=== PATIENT | female | born 1950 | race Caucasian/White ===

== ENCOUNTER → 2017-07-06 | Outpatient (CLI) | payer MEDICARE, BC ==
[~2017-07-06] MED LIST: AVELOX 400MG T400 MG PO; CALCIUM 600MG+D1 TAB PO; CALCIUM1 CAP PO; CYMBALTA 30MG30 MG PO; DEXILANT30 MG PO; EVISTA 60MG60 MG/TAB PO; FISH OIL1000 MG PO; HCTZ12.5TAB PO; LIORESAL 1010 MG/TAB PO; LOFIBRA160 MG PO; PROTONIX 40MG T40 MG PO; TOPROL XL 50MG50 MG PO
== END ==
LOC: MC.RAD 09:47
DX: Z12.31 Encounter for screening mammogram for malignant neoplasm of breast (principal)

== ENCOUNTER → 2018-07-23 | Outpatient (CLI) | payer MEDICARE, BC | LOC: MC.RAD 07-19 11:00 | DX: Z12.31 Encounter for screening mammogram for malignant neoplasm of breast (principal) ==

== ENCOUNTER 2019-01-14 06:54 | Outpatient (CLI) | payer MEDICARE, BC ==
[~2019-01-14] VITALS: Ht 162.6 cm; Wt 51.8 kg
[2019-01-14] VITALS (11 sets, daily range): BP systolic 105–144; BP diastolic 55–84; PULSE 60–79; TEMP 97.9
[~2019-01-14 06:54] MED LIST changes: +PROTONIX20 MG PO
[2019-01-14] MEDS ORDERED: CALCIUM CITRAT950 MG PO (07:14)
[2019-01-14] MEDS ORDERED: EPA FISH OIL1 SGL PO (07:15)
[2019-01-14] MEDS ORDERED: ZYRTEC 10MG10 MG PO (07:17)
[2019-01-14] MEDS ORDERED: FLONASEALLERGY NS (07:17)
--- NOTE | 2019-01-14 09:00 | NUR ---
PT IN ROOM. MONITORING EQUIPMENT PLACED ON PT.
--- NOTE | 2019-01-14 09:05 | NUR ---
DR BROWER IN ROOM. TIME OUT DONE. PT WAS GIVEN 1 MG VERSED AND 25 MCG FENTANYL. PROCEDURE BEGINS
--- NOTE | 2019-01-14 09:10 | NUR ---
SAMPLES TAKEN AND PLACED IN FORMALIN. PT DOING WELL, ALERT, RESTING WITH EYES CLOSED.
--- NOTE | 2019-01-14 09:15 | NUR ---
Pt to EU 10 per w/c s/p lung bx. Pt resting well, at bedside.
--- NOTE | 2019-01-14 11:15 | NUR ---
Pt has ambulated and consuelo PO intake s n/v. PIV removed from R H with catheter intact.
--- NOTE | 2019-01-14 11:25 | NUR ---
Pt discharged per w/c by nurse with .
== END 2019-01-14 15:04 | disposition home or self-care (01) ==
LOC: COL.RAD 06:54
DX: R91.8 Other nonspecific abnormal finding of lung field (principal)

== ENCOUNTER → 2019-01-26 | Outpatient (CLI) | payer MEDICARE, BC ==
[~2019-01-26] MED LIST changes: +CALCIUM CITRAT950 MG PO; +EPA FISH OIL1 SGL PO; +FLONASEALLERGY NS; +ZYRTEC 10MG10 MG PO
== END ==
LOC: COL.RAD 07:19
DX: Z01.812 Encounter for preprocedural laboratory examination (principal); C34.31 Malignant neoplasm of lower lobe, right bronchus or lung; R16.0 Hepatomegaly, not elsewhere classified
CPT/HCPCS: Q9967

== ENCOUNTER → 2019-01-27 | Outpatient (CLI) | payer MEDICARE, BC | LOC: COL.RAD 07:11 | DX: C34.91 Malignant neoplasm of unspecified part of right bronchus or lung (principal) | CPT/HCPCS: A9585 ==

== ENCOUNTER → 2019-08-17 | Outpatient (CLI) | payer MEDICARE, BC | LOC: MC.RAD 14:08 | DX: Z12.31 Encounter for screening mammogram for malignant neoplasm of breast (principal) ==

== ENCOUNTER → 2020-06-19 | Day surgery (SDC) | payer MEDICARE, BC ==
[~2020-06-19] VITALS: Ht 160 cm; Wt 50.9 kg
[2020-06-19 22:08] VITALS: TEMP 97
[2020-06-19 23:46] VITALS: BP 123/84; PULSE 102
== END ==
LOC: COL.ER 19:33 → SDCO 20:58
DX: K22.2 Esophageal obstruction (principal); K31.89 Other diseases of stomach and duodenum; K44.9 Diaphragmatic hernia without obstruction or gangrene; K22.70 Barrett's esophagus without dysplasia; K21.9 Gastro-esophageal reflux disease without esophagitis; I10 Essential (primary) hypertension; Z85.118 Personal history of other malignant neoplasm of bronchus and lung; Z85.05 Personal history of malignant neoplasm of liver; Z85.820 Personal history of malignant melanoma of skin; Z87.891 Personal history of nicotine dependence; Z92.3 Personal history of irradiation; Z79.899 Other long term (current) drug therapy; Z88.6 Allergy status to analgesic agent; Z88.0 Allergy status to penicillin; Z90.710 Acquired absence of both cervix and uterus
CPT/HCPCS: C1726; J0330; J1100; J2405; J2704; J3010; J7030

== ENCOUNTER → 2021-01-08 | Outpatient (CLI) | payer MEDICARE, BC | LOC: MC.RAD 10:20 | DX: Z12.31 Encounter for screening mammogram for malignant neoplasm of breast (principal) ==

== ENCOUNTER 2021-04-14 14:52 | Emergency (ER) | payer MEDICARE, BC ==
[~2021-04-14] VITALS: Ht 165.1 cm; Wt 47.7 kg
[2021-04-14 15:10] VITALS: TEMP 98.2
[2021-04-14 15:19] LABS: HEMATOCRIT 42.1 % (37.0-47.0); HEMOGLOBIN 14.5 g/dl (12.5-16.0); MEAN CELL VOLUME 93 fl (80.0-100.0); MEAN CORPUSCULAR HEMOGLOBIN 32 pg (27.0-31.0); MEAN CORPUSCULAR HGB CONC 34 g/dl (33.0-37.0); MEAN PLATELET VOLUME 8.9 fl (7.4-10.4); PLATELET COUNT 245 K/mm3 (130-400); RED BLOOD COUNT 4.52 M/mm3 (4.10-5.30); REDCELL DISTRIBUTION WIDTH-CV 12.3 % (11.5-14.5)
[2021-04-14 15:28] LABS: ALANINE AMINOTRANSFERASE 24 U/L (4-34); ALBUMIN 4.1 gm/dL (3.5-5.0); ALKALINE PHOSPHATASE 69 U/L (50-136); ANION GAP 9 mmol/L (7-16); AST,SGOT 47 U/L (15-37); BILIRUBIN,TOTAL 0.7 mg/dL (0.0-1.0); BLOOD UREA NITROGEN 23 mg/dL (7-17); CALCIUM 9.3 mg/dL (8.4-10.2); CARBON DIOXIDE 23 mmol/L (22-30); CHLORIDE 103 mmol/L (98-107); GLUCOSE 172 mg/dL (74-106); POTASSIUM 3.6 mmol/L (3.4-5.0); SODIUM 134 mmol/L (137-145); TOTAL PROTEIN 7.4 gm/dL (6.4-8.2)
[2021-04-14 15:34] LABS: ALCOHOL(ethanol),MEDICAL < 10 mg/dL
[2021-04-14 16:03] LABS: BAND 9 % (0-10); LYMPHOCYTE 14 % (20.0-51.0); METAMYELOCYTE 3 % (0-0); NEUTROPHILS 73 % (42.0-75.2); PLATELET ESTIMATE NORMAL (NORMAL)
[2021-04-14 16:21] VITALS: BP 127/87; PULSE 78
== END 2021-04-14 16:21 | disposition short-term general hospital (02) ==
LOC: COL.ER 14:52
PROVIDERS: Family Medicine
DX: S06.5X9A Traumatic subdural hemorrhage with loss of consciousness of unspecified duration, initial encounter (principal); S02.119A Unspecified fracture of occiput, initial encounter for closed fracture; R40.2420 Glasgow coma scale score 9-12, unspecified time; I10 Essential (primary) hypertension; Z79.899 Other long term (current) drug therapy; W10.9XXA Fall (on) (from) unspecified stairs and steps, initial encounter
CPT/HCPCS: A4314; J0330; J1953; J2250; J2704